=== PATIENT | female | born 1950 | race Caucasian/White ===

== ENCOUNTER → 2018-04-07 | Outpatient (CLI) | payer MEDICARE ==
--- NOTE | 2018-04-07 16:22 | CT ---
EXAM DESCRIPTION: Soft Tissue Neck w/wo Contrast: Computed Tomography CLINICAL HISTORY: 67 years Female, ACUTE SIALOADENITIS COMPARISON: None. TECHNIQUE: Spiral, axial 2.5 x 2.5 mm scans through the neck soft tissues before and after infusion of IV contrast. Sagittal and coronal 2.0 mm post IV contrast reconstructions. No adverse reactions. Total Exam DLP: 692.30 mGy-cm. This exam was performed according to our departmental CT dose-optimization program which includes automated exposure control, adjustment of the mA and/or kV according to patient size and/or use of iterative reconstruction technique; to reduce radiation dose to as low as reasonably achievable (ALARA). FINDINGS: 3.4 x 2.2 x 2.6 cm irregularly enhancing mass with more peripheral enhancement, on the inferior margin of the body of the left mandible, abutting the subcutaneous fascia, the lateral left lung base, the anterior aspect of the left submandibular gland. Increased fatty density around the mass with no calcification.. No calcification in the submandibular glands, sublingual glands, or parotid glands. Superior to the abscess is a defect in the medial left mandibular body associated with the root of a residual molar tooth, with surrounding bone loss. No other soft tissue masses or regions of abnormal enhancement. No abnormal lymph nodes in the parapharyngeal space, carotid spaces, or paracervical spaces. Normal density and enhancement of the tongue and tongue base. No effacement or displacement of the airway. No adenopathy in the upper mediastinum. Normal density and enhancement of the thyroid gland. Included lung upper lobes and pleura are unremarkable. No significant abnormalities in the cervical spine. IMPRESSION: 1. 3.4 cm abscess in the submandibular region on the left neck, between the submandibular gland, tongue base, and subcutaneous fascia. Possible origin from left mandibular molar root which appears to have eroded through the medial mandible. Less likely origin from obstructed salivary duct or lymph node. No calcifications, asymmetric appearance, or abnormal enhancement in the included salivary glands. CRITICAL COMMUNICATION: The critical value was discussed directly by phone with Mr. Mayco Howe, family nurse practitioner at approximately 1610 hours, on April 07, 2018. Electronically signed by: Harry Upton MD 04/07/2018 4:20 PM SENIOR MANAGEMENT CONSULTANT
== END ==
LOC: LAB.O 13:25
PROVIDERS: ATTEND Nurse Practitioner Family
DX: K11.21 Acute sialoadenitis (principal); L02.11 Cutaneous abscess of neck

== ENCOUNTER 2018-04-09 09:58 | Emergency (ER) | payer MEDICARE ==
--- NOTE | 2018-04-09 10:15 | ED.PDOC ---
History of Present Illness - General Chief Complaint: General Stated Complaint: parotid abscess Time Seen by Provider: 04/09/18 10:14 Source: patient Exam Limitations: no limitations - History of Present Illness Initial Comments: Kimberly Cabrera 67 y/o female came to ER with worsening dull painful swelling left side of jaw for the last 1/1/[address]-neck with contrast showed 3.4 cm abscess left submandibular region from left mandibular molar root eroding thru medial mandible.She was taking Keflex and levaquin but not getting better and unable to open mouth fully because of pain.No fever chills,no drooling difficulty opening mouth and swallowing. Timing/Duration: getting worse, other - see hpi Severity: moderate Improving Factors: rest Worsening Factors: eating Associated Symptoms: other - see hpi Allergies/Adverse Reactions: Allergies Diphenhydramine [From Benadryl] Allergy (Verified 04/09/18 10:13) Promethazine [From Phenergan] Allergy (Unverified 09/28/12 12:46) vibryd Allergy (Uncoded 04/21/12 23:40) Home Medications: Ambulatory Orders Acetaminophen W/ Codeine [Tylenol W/ CODEINE #3] 1 ea PO PRN 04/09/18 Adalimumab [Humira] 40 mg SC .[id number] 04/09/18 Benazepril & Hydrochlorothiazi [Lotensin Hct 20-25 mg] 1 tab PO DAILY 04/09/18 Clonazepam [Klonopin] 1 mg PO QID 04/09/18 Duloxetine HCl [Cymbalta] 60 mg PO DAILY 04/09/18 Leflunomide [Arava] 20 mg PO DAILY 04/09/18 Pravastatin Sodium 20 mg PO DAILY 04/09/18 Review of Systems - Review of Systems Constitutional: States: no symptoms reported EENTM: States: see HPI Respiratory: States: no symptoms reported Cardiology: States: no symptoms reported Gastrointestinal/Abdominal: States: no symptoms reported Genitourinary: States: no symptoms reported Musculoskeletal: States: joint pain - has RA on treatment Past Medical History (General) - Patient Medical History Hx Stroke: No Hx Congestive Heart Failure: No Hx Hypertension: Yes Hx Diabetes: No Hx Other PMH: Yes - Rheumatoid Arthritis Surgical History: other - hyaterectomy,BTL,breast reduction - Vaccination History Hx Influenza Vaccination: No Hx Pneumococcal Vaccination: Yes - Social History Hx Tobacco Use: No Hx Depression: Yes Family Medical History - Family History Mother Family History: Unknown Living Status: Unknown Hx Cardiac Disease: Yes - mo Hx Family Cancer: Yes - breast-mom Hx Family;Other: Dad-rheumatoid arthritis Physical Exam - Physical Exam General Appearance: Alert, No apparent distress Eye Exam: bilateral normal Ears, Nose, Throat: hearing grossly normal, normal ENT inspection Neck: full range of motion, limited range of motion, other - tender erthematous swelling along submental part to lateral part of mandible Respiratory: chest non-tender, lungs clear, normal breath sounds, no respiratory distress Cardiovascular/Chest: normal peripheral pulses, regular rate, rhythm, no murmur Peripheral Pulses: radial,right: 2+, radial,left: 2+ Gastrointestinal/Abdominal: normal bowel sounds, non tender, soft, no organomegaly Back Exam: no CVA tenderness, no vertebral tenderness Neurologic: alert, oriented x 3 Skin Exam: normal color, warm/dry Lymphatic: no adenopathy Progress - Progress Progress: 04/09/18 11:04 Vital Signs - 8 hr 04/09/18 10:09 Temperature 97 F L Pulse Rate [ 102 H Left Brachial] Respiratory 20 Rate Blood Pressure 116/74 [Left Arm] O2 Sat by Pulse 96 Oximetry - Results/Orders Results/Orders: Laboratory Results - last 24 hr 04/09/18 04/09/18 10:40 10:41 WBC 10.4 RBC 3.83 L Hgb 11.2 L Hct 34.0 L MCV 88.9 MCH 29.2 MCHC 32.8 L RDW 13.4 Plt Count 254 MPV 8.3 Absolute Neuts (auto) 7.40 H Absolute Lymphs (auto) 2.20 Absolute Monos (auto) 0.70 Absolute Eos (auto) 0.00 Absolute Basos (auto) 0.10 Neutrophils % 70.8 Lymphocytes % 21.5 Monocytes % 7.0 Eosinophils % 0.1 L Basophils % 0.6 Lactic Acid 2.2 - EKG/XRAY/CT XRAY: chest - small left pleural effusion CT Ordered: Yes - done Departure - Departure Clinical Impression: Submandibular abscess Time of Disposition: 11:46 Disposition: Transfer to Hospital Condition: Fair Departure Forms: Patient Portal Self Enrollment Referrals: JAYDON FOSTER IV, TUB OPERATOR [Primary Care Provider] - 1-2 Weeks Home Medications: Ambulatory Orders Acetaminophen W/ Codeine [Tylenol W/ CODEINE #3] 1 ea PO PRN 04/09/18 Adalimumab [Humira] 40 mg SC .[id number] 04/09/18 Benazepril & Hydrochlorothiazi [Lotensin Hct 20-25 mg] 1 tab PO DAILY 04/09/18 Clonazepam [Klonopin] 1 mg PO QID 04/09/18 Duloxetine HCl [Cymbalta] 60 mg PO DAILY 04/09/18 Leflunomide [Arava] 20 mg PO DAILY 04/09/18 Pravastatin Sodium 20 mg PO DAILY 04/09/18 Transfer to Outside Facility - Transfer Information Accepting Provider:: Dr. Astorga Accepting Facility: [facility] Reason for Transfer: required specialist not available - ENT
[2018-04-09] MEDS ORDERED: PIPERACILLIN/TAZOBACTAM 4.5 GM in SODIUM CHLORIDE 0.9% 100ML 100 ML IVPB ONE (10:34)
[2018-04-09] MEDS ORDERED: TETANUS,DIPHTHERIA,PERTUSSIS 1 EA SYG IM ONE (10:34)
[2018-04-09] MEDS ORDERED: PIPERACILLIN/TAZOBACTAM 2.25 GM VIAL IVPB ONE (10:51)
[2018-04-09] MEDS ORDERED: SODIUM CHLORIDE 0.9% 100ML 100 ML IVPB ONE ×2 (10:54→11:02)
--- NOTE | 2018-04-09 11:15 | RAD ---
EXAM DESCRIPTION: Chest,1 View CLINICAL HISTORY: 67 years, Female, swelling neck COMPARISON: Chest x-ray dated 08/05/2013 FINDINGS: A single frontal chest radiograph was performed. The lungs are well expanded and clear. The RIGHT costophrenic sulcus is sharp. The LEFT costophrenic sulcus is blunted. The cardiac silhouette, hilar regions, trachea, soft tissues and bony structures are unremarkable. IMPRESSION: Small LEFT pleural effusion. Electronically signed by: Xiomara Valencia MD 04/09/2018 11:13 AM [facility]
[2018-04-09] MEDS ORDERED: MORPHINE SULFATE INJ 10 MG/ML VIAL IV ONE (11:26)
[2018-04-09 12:01] VITALS: BP 106/66; TEMP 97.6; O2SAT 95
== END 2018-04-09 12:05 | disposition short-term general hospital (02) ==
LOC: ER 09:58
DX: K12.2 Cellulitis and abscess of mouth (principal); F32.9 Major depressive disorder, single episode, unspecified; I10 Essential (primary) hypertension; M06.9 Rheumatoid arthritis, unspecified; Z79.899 Other long term (current) drug therapy; Z88.8 Allergy status to other drugs, medicaments and biological substances; Z23 Encounter for immunization
CPT/HCPCS: 36415; 71045; 83605; 85025; 90471; 90715; J2060; J2270; J2543; J7050

== ENCOUNTER 2018-10-03 | Emergency (ER) | payer MEDICARE | END 2018-10-03 16:05 | disposition left against medical advice (07) ==

== ENCOUNTER 2018-10-10 11:07 | Emergency (ER) | payer MEDICARE ==
[2018-10-10 11:26] VITALS: TEMP 97.7
--- NOTE | 2018-10-10 12:44 | RAD ---
EXAM DESCRIPTION: Obstructive series, 3 radiographs CLINICAL HISTORY: Shortness of breath. Abdomen pain FINDINGS/ IMPRESSION: Normal bowel gas pattern. No evidence of mechanical bowel obstruction, pneumatosis or free intraperitoneal air No organomegaly or obvious abdominal mass lesion Normal cardiomediastinal silhouette. The lungs are clear Electronically signed by: Hayden Price MD 10/10/2018 12:42 PM CDT
[2018-10-10] MEDS ORDERED: SODIUM CHLORIDE 0.9% 1000ML 1,000 ML IVS ONE (13:39)
--- NOTE | 2018-10-10 14:16 | CT ---
PROVIDED CLINICAL HISTORY/REASON FOR EXAM: body aches, abd pain, on immunosuppressants STUDY TYPE/TECHNIQUE: CT ABDOMEN PELVIS WITHOUT IV CONTRAST This exam was performed according to our departmental dose-optimization program, which includes automated exposure control, adjustment of the mA and/or kV according to patient size and/or use of iterative reconstruction technique. COMPARISON: 04/21/2010 FINDINGS: Evaluation limited by lack of intravenous contrast. Bibasilar volume loss. No focal consolidation or suspicious pulmonary nodule. The contours of the liver, gallbladder, spleen, pancreas and adrenal glands are unremarkable. Calcified granuloma in the right hepatic lobe. Normal renal contours. No hydronephrosis. No urolithiasis. The bladder is mildly distended. Scattered colonic diverticula without focal inflammatory change. No evidence of bowel obstruction. No findings to suggest appendicitis. No adenopathy. No focal fluid collection. No free air. Normal caliber abdominal aorta. No acute or suspicious osseous abnormality. Scattered degenerative changes present. IMPRESSION: No evidence of acute process in the abdomen or pelvis. Electronically signed by: Leroy Rojas MD 10/10/2018 2:15 PM CDT
[2018-10-10] MEDS ORDERED: KETOROLAC TROMETHAMINE INJ 30 MG/ML VIAL IV ONE (14:18)
[2018-10-10] MEDS ORDERED: predniSONE 20 MG TAB PO ONE (14:18)
[2018-10-10] MEDS ORDERED: ONDANSETRON INJ 4 MG/2 ML VIAL IV ONE (14:50)
--- NOTE | 2018-10-10 15:39 | ED.PDOC ---
History of Present Illness - General Chief Complaint: General Stated Complaint: WEAKNESS, NAUSEA, ARTHRITIC PAIN Time Seen by Provider: 10/10/18 11:12 Source: patient Exam Limitations: no limitations - History of Present Illness Initial Comments: the patient is 68-year-old female with a history of rheumatoid arthritis presenting secondary to 2-3 weeks of increasing generalized weakness. She is having some nausea. She is having some fatigue. No syncope. She feels like she is having a rheumatoid flare with multiple joints now with increasing pain. She R he takes several immunosuppressants. No fever. No obvious source of infection. Timing/Duration: other - 2 weeks Severity: moderate Improving Factors: nothing Worsening Factors: movement Associated Symptoms: loss of appetite, malaise, nausea/vomiting, weakness Allergies/Adverse Reactions: Allergies Diphenhydramine [From Benadryl] Allergy (Verified 04/09/18 10:13) Methotrexate Allergy (Verified 10/10/18 14:48) Promethazine [From Phenergan] Allergy (Unverified 09/28/12 12:46) vibryd Allergy (Uncoded 04/21/12 23:40) Home Medications: Ambulatory Orders Acetaminophen W/ Codeine [Tylenol W/ CODEINE #3] 1 ea PO PRN 04/09/18 Adalimumab [Humira] 40 mg SC .[id number] 04/09/18 Benazepril & Hydrochlorothiazi [Lotensin Hct 20-25 mg] 1 tab PO DAILY 04/09/18 Clonazepam [Klonopin] 1 mg PO QID 04/09/18 Duloxetine HCl [Cymbalta] 60 mg PO DAILY 04/09/18 Leflunomide [Arava] 20 mg PO DAILY 04/09/18 Pravastatin Sodium 20 mg PO DAILY 04/09/18 Amoxicillin & Pot Clavulanate [Augmentin Tab] 875 mg PO BID #10 tab 10/10/18 Ondansetron Odt [Zofran ODT] 4 mg PO Q8HR PRN #5 tab 10/10/18 Sucralfate Tab [Carafate Tab] 1 gm PO QID #120 tab 10/10/18 predniSONE [Prednisone] 20 mg PO DAILY #5 tab 10/10/18 Review of Systems - Review of Systems Constitutional: States: malaise, weakness EENTM: States: no symptoms reported Respiratory: States: no symptoms reported Cardiology: States: no symptoms reported Gastrointestinal/Abdominal: States: nausea, vomiting Genitourinary: States: no symptoms reported Musculoskeletal: States: back pain, joint pain, joint swelling, muscle pain Neurological: States: anxiety Endocrine: States: no symptoms reported All other Systems: No Change from Baseline Past Medical History (General) - Patient Medical History Hx Stroke: No Hx Asthma: No Hx Cardiac Disorders: No Hx Congestive Heart Failure: No Hx Hypertension: Yes Hx Diabetes: No Surgical History: appendectomy, Hysterectomy, other - Vaccination History Hx Influenza Vaccination: No Hx Pneumococcal Vaccination: Yes - Social History Hx Tobacco Use: No Hx Depression: Yes Family Medical History - Family History Mother Family History: Unknown Living Status: Unknown Hx Cardiac Disease: Yes - mo Hx Family Cancer: Yes - breast-mom Hx Family;Other: Dad-rheumatoid arthritis Physical Exam - Physical Exam General Appearance: Alert, Anxious, No apparent distress Eye Exam: bilateral normal Ears, Nose, Throat: hearing grossly normal, normal ENT inspection Neck: full range of motion, supple Respiratory: lungs clear, normal breath sounds, no respiratory distress, no accessory muscle use Cardiovascular/Chest: normal peripheral pulses, regular rate, rhythm, no edema Peripheral Pulses: radial,right: 2+, radial,left: 2+, dorsalis pedis,right: 2+, dorsalis pedis,left: 2+ Gastrointestinal/Abdominal: non tender - mild epigastric discomfort palpation. No palpable mass. No rebound or peritoneal signs., soft Rectal Exam: deferred Back Exam: no CVA tenderness, no vertebral tenderness Extremity: normal range of motion, no calf tenderness, normal capillary refill, other - multiple tender joints Neurologic: truck sales representative II-XII nml as tested, alert, normal mood/affect - anxious, oriented x 3 Skin Exam: normal color Comments: Vital Signs - 24 hr 10/10/18 10/10/18 10/10/18 11:21 12:48 13:00 Temperature 97.7 F Pulse Rate [ 93 H 88 75 left brachial] Respiratory 18 20 18 Rate Blood Pressure 92/77 117/74 136/62 [left brachial] O2 Sat by Pulse 95 94 L Oximetry 10/10/18 10/10/18 14:30 15:19 Temperature Pulse Rate [ 72 78 left brachial] Respiratory 18 18 Rate Blood Pressure 175/90 144/73 [left brachial] O2 Sat by Pulse 95 96 Oximetry Progress - Progress Progress: 10/10/18 15:40 the patient 68-year-old female presenting to the emergency room secondary to increasing generalized weakness along with some nausea and increasing arthralgias. this is most likely due to a rheumatoid flare. The patient is going to be written for Carafate 4 times daily for the gastritis. She'll also be written for Zofran for as needed use. She is going to be written for 5 days of oral prednisone 40 mg daily. She'll be written for Augmentin as a broad-spectrum antibiotic for 5 days due to the possibility of a undetected infection with her immunosuppressive state. She needs to keep herself well hydrated. She did receive a liter of IV fluids for mild dehydration. She needs to keep follow-up with her framing mechanic. She needs to increase her physical activity level. ER warnings were given. - Results/Orders Results/Orders: Laboratory Tests 10/10/18 10/10/18 10/10/18 12:16 12:16 12:16 WBC 8.8 RBC 4.08 L Hgb 12.6 Hct 36.6 MCV 89.6 MCH 30.9 MCHC 34.5 RDW 13.7 Plt Count 234 MPV 8.9 Absolute Neuts (auto) 4.60 Absolute Lymphs (auto) 3.10 Absolute Monos (auto) 0.90 H Absolute Eos (auto) 0.10 Absolute Basos (auto) 0.10 Neutrophils % 52.2 Lymphocytes % 35.9 Monocytes % 10.0 H Eosinophils % 1.2 Basophils % 0.7 Sodium 133 L Potassium 3.5 L Chloride 100 L Carbon Dioxide 22 Anion Gap 14.5 BUN 24 H Creatinine 1.10 BUN/Creatinine Ratio 21.8 H Random Glucose 98 Serum Osmolality 270.4 L Lactic Acid 1.9 Calcium 9.6 Magnesium 1.8 Total Bilirubin 0.8 AST 24 ALT 18 Alkaline Phosphatase 70 Creatine Kinase 40 CK-MB (CK-2) 1.7 Troponin I < 0.02 B-Natriuretic Peptide 7.0 Serum Total Protein 7.3 Albumin 4.3 Globulin 3.0 Albumin/Globulin Ratio 1.4 Amylase 108 H Lipase 57 H TSH 0.66 Urine Color Urine Appearance Urine pH Ur Specific [place] Urine Protein Urine Glucose (UA) Urine Ketones Urine Blood Urine Nitrite Urine Bilirubin Urine Urobilinogen Ur Leukocyte Esterase Urine RBC Urine WBC Ur Epithelial Cells Ur Transition Epith Cell Amorphous Sediment Urine Bacteria 08/19/19 12:16 WBC RBC Hgb Hct MCV MCH MCHC RDW Plt Count MPV Absolute Neuts (auto) Absolute Lymphs (auto) Absolute Monos (auto) Absolute Eos (auto) Absolute Basos (auto) Neutrophils % Lymphocytes % Monocytes % Eosinophils % Basophils % Sodium Potassium Chloride Carbon Dioxide Anion Gap BUN Creatinine BUN/Creatinine Ratio Random Glucose Serum Osmolality Lactic Acid Calcium Magnesium Total Bilirubin AST ALT Alkaline Phosphatase Creatine Kinase CK-MB (CK-2) Troponin I B-Natriuretic Peptide Serum Total Protein Albumin Globulin Albumin/Globulin Ratio Amylase Lipase TSH Urine Color Yellow Urine Appearance Clear Urine pH 7.0 Ur Specific [place] 1.015 Urine Protein Negative Urine Glucose (UA) Negative Urine Ketones Negative Urine Blood Negative Urine Nitrite Negative Urine Bilirubin Negative Urine Urobilinogen 0.2 Ur Leukocyte Esterase Negative Urine RBC 0 Urine WBC 1-3 Ur Epithelial Cells 1-3 Ur Transition Epith Cell 0-1 Amorphous Sediment Trace Urine Bacteria Rare CT scan of abdomen and pelvis along with acute abdominal series appear benign as far as acute pathology. Departure - Departure Clinical Impression: Rheumatoid arthritis flare, Mild dehydration Acute gastritis Qualifiers: Gastritis type: unspecified gastritis Gastritis bleeding: without bleeding Qualified Code(s): K29.00 - Acute gastritis without bleeding Disposition: Discharge to Home or Self Care Condition: Fair Departure Forms: ED Discharge - Pt. Copy, Patient Portal Self Enrollment Diet: bland diet Activity: increase activity as tolerated Referrals: JAYDON FOSTER IV, PARTS EXPEDITER [Primary Care Provider] - 1-5 Days Prescriptions: Ondansetron Odt [Zofran ODT] 4 mg PO Q8HR PRN #5 tab PRN Reason: Nausea--Moderate Amoxicillin & Pot Clavulanate [Augmentin Tab] 875 mg PO BID #10 tab predniSONE [Prednisone] 20 mg PO DAILY #5 tab Sucralfate Tab [Carafate Tab] 1 gm PO QID #120 tab Home Medications: Ambulatory Orders Acetaminophen W/ Codeine [Tylenol W/ CODEINE #3] 1 ea PO PRN 04/09/18 Adalimumab [Humira] 40 mg SC .[id number] 04/09/18 Benazepril & Hydrochlorothiazi [Lotensin Hct 20-25 mg] 1 tab PO DAILY 04/09/18 Clonazepam [Klonopin] 1 mg PO QID 04/09/18 Duloxetine HCl [Cymbalta] 60 mg PO DAILY 04/09/18 Leflunomide [Arava] 20 mg PO DAILY 04/09/18 Pravastatin Sodium 20 mg PO DAILY 04/09/18 Amoxicillin & Pot Clavulanate [Augmentin Tab] 875 mg PO BID #10 tab 10/10/18 Ondansetron Odt [Zofran ODT] 4 mg PO Q8HR PRN #5 tab 10/10/18 Sucralfate Tab [Carafate Tab] 1 gm PO QID #120 tab 10/10/18 predniSONE [Prednisone] 20 mg PO DAILY #5 tab 10/10/18 Additional Instructions: the patient 68-year-old female presenting to the emergency room secondary to increasing generalized weakness along with some nausea and increasing arthralgias. this is most likely due to a rheumatoid flare. The patient is going to be written for Carafate 4 times daily for the gastritis. She'll also be written for Zofran for as needed use. She is going to be written for 5 days of oral prednisone 40 mg daily. She'll be written for Augmentin as a broad-spectrum antibiotic for 5 days due to the possibility of a undetected infection with her immunosuppressive state. She needs to keep herself well hydrated. She did receive a liter of IV fluids for mild dehydration. She needs to keep follow-up with her framing mechanic. She needs to increase her physical activity level. ER warnings were given.
[2018-10-10 16:33] VITALS: BP 134/77; O2SAT 92
== END 2018-10-10 15:55 | disposition home or self-care (01) ==
LOC: ER 11:07
DX: K29.00 Acute gastritis without bleeding (principal); E86.0 Dehydration; M06.9 Rheumatoid arthritis, unspecified; F32.9 Major depressive disorder, single episode, unspecified; I10 Essential (primary) hypertension; Z90.49 Acquired absence of other specified parts of digestive tract; Z79.899 Other long term (current) drug therapy; Z88.8 Allergy status to other drugs, medicaments and biological substances
CPT/HCPCS: 36415; 74019; 74176; 80053; 81001; 82150; 82533; 82550; 82553; 83605; 83690; 83735; 83880; 84443; 84484; 85025; 87040; J1885; J2405; J7030; J7512

== ENCOUNTER 2019-07-16 06:12 | Emergency (ER) | payer MEDICARE ==
[2019-07-16] MEDS ORDERED: fentaNYL CITRATE INJ 50 MCG/ML 2 ML AMP IV ONE ×2 (06:59→07:58)
--- NOTE | 2019-07-16 07:06 | ED.PDOC ---
History of Present Illness - General Source: patient, family - History of Present Illness Initial Comments: 68 yo female s/p lower back surgery brought in by her son from home for chief complaint of left lower extremity pain. Patient had extensive lower back surgery about [address] Wilcox at [facility] and was just released from rehab in [place] 5 days ago. Reports left leg pain began about 3 to 4 days ago with gradual worsening. States that the pain is intermittent, waxes and wanes, sharp, radiates from her left foot heel up to her groin region on the left side, sharp, 10/10 in severity currently, has intensified since about 5 AM this morning. Reports several falls while in rehab in which she landed on her knees. States she did have some x-ray imaging without any fractures at that time. Denies any weakness, deformity. Reports some mild intermittent numbness throughout the left leg. Reports that her back pain is actually much improved since the surgery. She was supposed to be seen 2 days ago for follow-up visit by her surgeon to have her sutures and fela removed but was unable to make this visit and will not be seen until this week now. She is also finishing up a course of Macrobid for a UTI which was diagnosed last week. Denies any fevers, chills, urinary symptoms, abdominal pain, nausea, vomiting, chest pain, dyspnea, cough. She was prescribed hydrocodone for postoperative pain control but her son states that the pain medications were causing her to have hallucinations and so she has had to back off on her dosing and frequency. This morning she is only taken 1 to 2 tablets of the hydrocodone and the pain is severe and not well-controlled so he brought her to the ED for further evaluation. Patient does also report a history of sciatica with similar symptoms in the past as well. <Timothy De Luna - Last Filed: 07/16/19 07:01> <Sánchez Arzola - Last Filed: 07/16/19 08:35> - General Chief Complaint: General Stated Complaint: Left leg pain groin to foot, S/P 2 wk back surgery Time Seen by Provider: 07/16/19 06:40 - History of Present Illness Allergies/Adverse Reactions: Allergies Diphenhydramine [From Benadryl] Allergy (Verified 07/16/19 06:46) Hydromorphone [From Dilaudid] Allergy (Verified 07/16/19 06:46) Methotrexate Allergy (Verified 07/16/19 06:46) Promethazine [From Phenergan] Allergy (Verified 07/16/19 06:46) vibryd Allergy (Uncoded 07/16/19 06:46) Home Medications: Ambulatory Orders Acetaminophen W/ Codeine [Tylenol W/ CODEINE #3] 1 ea PO PRN 04/09/18 Adalimumab [Humira] 40 mg SC .[id number] 04/09/18 Benazepril & Hydrochlorothiazi [Lotensin Hct 20-25 mg] 1 tab PO DAILY 04/09/18 Clonazepam [Klonopin] 1 mg PO QID 04/09/18 Duloxetine HCl [Cymbalta] 60 mg PO DAILY 04/09/18 Leflunomide [Arava] 20 mg PO DAILY 04/09/18 Pravastatin Sodium 20 mg PO DAILY 04/09/18 HYDROcodone 10MG/APAP 325MG [[place] 10/325] 1 ea PO Q6H PRN #15 tab 07/16/19 Review of Systems - Review of Systems Review of Systems: 07/16/19 07:06 as per HPI All other Systems: Reviewed and Negative <Timothy De Luna - Last Filed: 07/16/19 07:01> Past Medical History (General) - Patient Medical History Hx Seizures: No Hx Stroke: No Hx Dementia: No Hx Asthma: No Hx of COPD: No Hx Cardiac Disorders: No Hx Congestive Heart Failure: No Hx Pacemaker: No Hx Hypertension: Yes Hx Diabetes: No Hx Gastroesophageal Reflux: No Hx Renal Disease: No Hx Cancer: No Hx of HIV: No Hx Hepatitis C: No Hx MRSA: No Surgical History: appendectomy, Hysterectomy - Vaccination History Hx Tetanus, Diphtheria Vaccination: Yes Hx Influenza Vaccination: Yes Hx Pneumococcal Vaccination: Yes - Social History Hx Tobacco Use: No Hx Alcohol Use: No Hx Depression: Yes <Timothy De Luna - Last Filed: 07/16/19 07:01> Family Medical History - Family History Mother Family History: Unknown Living Status: Unknown Hx Cardiac Disease: Yes - mo Hx Family Cancer: Yes - breast-mom Hx Family;Other: Dad-rheumatoid arthritis <Timothy De Luna - Last Filed: 07/16/19 07:01> Physical Exam - Physical Exam General Appearance: Alert, No apparent distress Eye Exam: bilateral normal Ears, Nose, Throat: hearing grossly normal, normal ENT inspection, normal pharynx Neck: non-tender, full range of motion, supple, normal inspection Respiratory: chest non-tender, lungs clear, normal breath sounds, no respiratory distress, no accessory muscle use Cardiovascular/Chest: normal peripheral pulses, regular rate, rhythm, no edema, no gallop, no JVD, no murmur Peripheral Pulses: radial,right: 2+, radial,left: 2+ Gastrointestinal/Abdominal: non tender, soft Back Exam: no CVA tenderness, no vertebral tenderness Extremity: normal range of motion, other - Left lower extremity appears normal on exam without bruising, swelling, deformity. There is moderate TTP to the left groin region and mild TTP to the left heel. ROM of the left lower extremity seems only mildly limited at the level of the hip due to pain. Otherwise strength, sensation, ROM appears normal throughout the left leg. Pulses 2+ and equal bilaterally throughout, good cap refill throughout. 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 Well-healing vertical surgical scar to midline of lower back with mild surrounding redness but without warmth, drainage, tenderness with running suture intact. <Timothy De Luna - Last Filed: 07/16/19 07:01> Progress - Progress Progress: 07/16/19 07:10 Acute left lower extremity pain -Consider fracture of the left hip/femur/knee/tib-fib/foot, pelvic fracture, sciatica, radiculopathy, other -Vitals stable, patient afebrile -Obtain blood work, x-ray imaging of the pelvis, left femur, left tib-fib, left foot -Place PIV, fentanyl 50 mcg IV for pain -Handoff given to Dr. Wilson at shift change Timothy De Luna MD Billing #[id number] <Timothy De Luna - Last Filed: 07/16/19 07:01> - Progress Progress: 07/16/19 08:28 Pt presents to ED for left leg pain worsening over several days. Has had a few falls since surgery 2 weeks ago. There is no edema or calf tenderness to suggest DVT. Pain appears to be more neuropathic. I have discussed treatment with steroids, but pt states she does not tolerate them. I discussed NSAIDS at home or Toradol here, but pt declines and states she cant take them due to GI side effects. She was treated with hydrocodone in [facility] and DC home on Oxycodone. States hydrocodone worked better for her. I will treat with short course of hydrocodone for acute pain and I have instructed her to f/u with her surgeon within 48 hours for recheck and further evaluation. SRP given. RX CTRL# [id number] [place] 10/325 #15, take 1 tab po Q 6 hrs prn pain - Results/Orders Results/Orders: FEMUR XRAY EXAM DESCRIPTION: Femur, left : CLINICAL HISTORY: Acute left leg pain, s/p back surgery w/ falls . COMPARISON: None . TECHNIQUE: A two view x-ray examination of Left femur is submitted. FINDINGS: There is no evidence of fracture, subluxation, dislocation or deformity. There is no evidence of soft tissue swelling. The bones are normally mineralized . The visualized joint spaces are normal. IMPRESSION: No evidence of fracture. Unremarkable study. PELVIS EXAM DESCRIPTION: Pelvis CLINICAL HISTORY: Acute left leg pain and Left groin pain COMPARISON: CT abdomen pelvis October 10, 2018. FINDINGS: There is no evidence of fracture, dislocation or pelvic ring disruption. The bones are normally mineralized. The visualized joint spaces are within normal limits. No evidence of soft tissue abnormalities are seen in the pelvis. There is no evidence of osteolytic or osteoblastic changes . Evidence of multilevel lumbar disc fusion and pedicle screw fixation of the lumbosacral spine is noted since prior study. Skin fela are noted. IMPRESSION: No evidence of fracture. TIB/FIB EXAM DESCRIPTION: Tibia/fibula, left : CLINICAL HISTORY: Acute left leg pain, s/p back surgery w/ falls . COMPARISON: None . TECHNIQUE: A two view x-ray examination of Left leg is submitted. FINDINGS: There is no evidence of fracture, subluxation, dislocation or deformity. There is no evidence of soft tissue swelling. The bones are normally mineralized . The visualized joint spaces are normal. IMPRESSION: No evidence of fracture. Unremarkable study. FOOT EXAM DESCRIPTION: X-ray left foot three views: CLINICAL HISTORY: Acute left leg/foot pain, s/p back surgery w/falls . COMPARISON: None . TECHNIQUE: Three view x-ray examination of left foot is submitted. FINDINGS: There is no evidence of fracture, subluxation, dislocation or deformity. There is no evidence of soft tissue swelling. The bones are normally mineralized . Minimal degenerative changes are seen in the first MTP joint. Prominent plantar calcaneal spur is present. A small accessory navicular is noted. IMPRESSION: No evidence of fracture. Calcaneal spur. - EKG/XRAY/CT Comments: NSR, rate 93, nml intervals, no ST abnormality <Sánchez Arzola - Last Filed: 07/16/19 08:35> Departure <Timothy De Luna - Last Filed: 07/16/19 07:01> - Departure Time of Disposition: 08:22 Diet: resume usual diet Activity: increase activity as tolerated <Sánchez Arzola - Last Filed: 07/16/19 08:35> - Departure Clinical Impression: Left leg pain, Essential hypertension Disposition: Discharge to Home or Self Care Condition: Good Departure Forms: ED Discharge - Pt. Copy, Patient Portal Self Enrollment Referrals: JAYDON FOSTER IV, EMULSIFICATION OPERATOR [Primary Care Provider] - 1-2 Days Prescriptions: HYDROcodone 10MG/APAP 325MG [[place] 10/325] 1 ea PO Q6H PRN #15 tab PRN Reason: Pain Home Medications: Ambulatory Orders Acetaminophen W/ Codeine [Tylenol W/ CODEINE #3] 1 ea PO PRN 04/09/18 Adalimumab [Humira] 40 mg SC .[id number] 04/09/18 Benazepril & Hydrochlorothiazi [Lotensin Hct 20-25 mg] 1 tab PO DAILY 04/09/18 Clonazepam [Klonopin] 1 mg PO QID 04/09/18 Duloxetine HCl [Cymbalta] 60 mg PO DAILY 04/09/18 Leflunomide [Arava] 20 mg PO DAILY 04/09/18 Pravastatin Sodium 20 mg PO DAILY 04/09/18 HYDROcodone 10MG/APAP 325MG [[place] 10/325] 1 ea PO Q6H PRN #15 tab 07/16/19 Additional Instructions: Follow up with your surgeon in 1-2 days for recheck
--- NOTE | 2019-07-16 08:02 | RAD ---
EXAM DESCRIPTION: Femur, left : CLINICAL HISTORY: Acute left leg pain, s/p back surgery w/ falls . COMPARISON: None . TECHNIQUE: A two view x-ray examination of Left femur is submitted. FINDINGS: There is no evidence of fracture, subluxation, dislocation or deformity. There is no evidence of soft tissue swelling. The bones are normally mineralized . The visualized joint spaces are normal. IMPRESSION: No evidence of fracture. Unremarkable study. Electronically signed by: Pia Penn MD 07/16/2019 7:59 AM CDT
--- NOTE | 2019-07-16 08:03 | RAD ---
EXAM DESCRIPTION: Tibia/fibula, left : CLINICAL HISTORY: Acute left leg pain, s/p back surgery w/ falls . COMPARISON: None . TECHNIQUE: A two view x-ray examination of Left leg is submitted. FINDINGS: There is no evidence of fracture, subluxation, dislocation or deformity. There is no evidence of soft tissue swelling. The bones are normally mineralized . The visualized joint spaces are normal. IMPRESSION: No evidence of fracture. Unremarkable study. Electronically signed by: Pia Penn MD 07/16/2019 8:01 AM CDT
--- NOTE | 2019-07-16 08:03 | RAD ---
EXAM DESCRIPTION: X-ray left foot three views: CLINICAL HISTORY: Acute left leg/foot pain, s/p back surgery w/falls . COMPARISON: None . TECHNIQUE: Three view x-ray examination of left foot is submitted. FINDINGS: There is no evidence of fracture, subluxation, dislocation or deformity. There is no evidence of soft tissue swelling. The bones are normally mineralized . Minimal degenerative changes are seen in the first MTP joint. Prominent plantar calcaneal spur is present. A small accessory navicular is noted. IMPRESSION: No evidence of fracture. Calcaneal spur. Electronically signed by: Pia Penn MD 07/16/2019 8:01 AM CDT
--- NOTE | 2019-07-16 08:04 | RAD ---
EXAM DESCRIPTION: Pelvis CLINICAL HISTORY: Acute left leg pain and Left groin pain COMPARISON: CT abdomen pelvis October 10, 2018. FINDINGS: There is no evidence of fracture, dislocation or pelvic ring disruption. The bones are normally mineralized. The visualized joint spaces are within normal limits. No evidence of soft tissue abnormalities are seen in the pelvis. There is no evidence of osteolytic or osteoblastic changes . Evidence of multilevel lumbar disc fusion and pedicle screw fixation of the lumbosacral spine is noted since prior study. Skin fela are noted. IMPRESSION: No evidence of fracture. Electronically signed by: Pia Penn MD 07/16/2019 8:03 AM CDT
[2019-07-16 08:13] VITALS: TEMP 97.3
[2019-07-16 08:55] VITALS: BP 127/69; O2SAT 92
== END 2019-07-16 08:46 | disposition home or self-care (01) ==
LOC: ER 06:12
DX: M79.662 Pain in left lower leg (principal); R10.30 Lower abdominal pain, unspecified; I10 Essential (primary) hypertension; R20.0 Anesthesia of skin
CPT/HCPCS: 36415; 72170; 73551; 73590; 73630; 80053; 82550; 82553; 84484; 85025; 85610; 85730; 93005; J3010